=== PATIENT | male | born 1945 | race Caucasian/White ===

== ENCOUNTER 2021-07-07 08:34 | Outpatient (CLI) | payer MEDICARE, SELFPAY ==
--- NOTE | ~2021-07-07 | MR_ITS ---
EXAMINATION: MR abdomen wo/w con DATE: 07/07/2021 09:39 INDICATION: Cyst of the pancreas TECHNIQUE: Magnetic resonance imaging (MRI) of the abdomen was performed without and with 13 mL Multi lorenza intravenous contrast. Sequences included coronal T2-weighted SS-FSE, coronal and axial FS 2D-F IESTA, axial STIR FSE, axial T2-weighted SS-FSE, axial T2-weighted FS SS-FSE, axial diffusion-weighte d SE, axial dual-echo T1-weighted FSPGR, and axial and coronal T1-weighted LAVA. Postcontrast axial T 1-weighted LAVA images were obtained in a time course. Postcontrast coronal T1-weighted LAVA images w ere obtained. COMPARISON: 01/10/2019 FINDINGS: Heart size is normal. No pericardial or pleural effusion. Bilateral gynecomastia. 1.8 cm T2 hyperinte nse nonenhancing cyst at the posterior dome of the liver with a couple additional subcentimeter cysts in segment 6 of the liver. 1.4 cm and 0.8 cm T2 hyperintense nonenhancing cystic lesions at the head of the pancreas which are slightly increased in size measuring 10 mm and 6 mm at the time of the wali or study. Pancreas is otherwise normal. Unchanged 4 mm nonenhancing T2 hyperintense cyst in the splee n along with a few small foci of absent signal in the spleen corresponding to calcified granulomata o n CT dated 06/03/2017. Gallbladder, bilateral adrenal glands and kidneys are normal. There are scatter ed diverticula along the visualized colon. No adjacent inflammatory stranding or edema to suggest div erticulitis. No pathologically enlarged abdominal lymphadenopathy. Severe disc height loss with fibro fatty degenerative endplate changes at L1-L2. Otherwise mild lumbar and lower thoracic spondylosis. IMPRESSION: 1. Minimal increase in a couple cystic lesions at the head of the pancreas with no evident solid soft tissue component. The differential diagnosis includes pseudocyst, intraductal papillary mucinous jose luis plasm (IPMN), mucinous cystic neoplasm (MCN), and the less common serous cystadenoma and neuroendocri ne tumor. Interval stability favors a benign etiology but would recommend additional 2 year follow-up pre and postcontrast MRI. Reviewed, dictated and finalized at location B. IMPRESSION: 1. Minimal increase in a couple cystic lesions at the head of the pancreas with no evident solid soft tissue component. The differential diagnosis includes ps eudocyst, intraductal papillary mucinous neoplasm (IPMN), mucinous cystic neopl asm (MCN), and the less common serous cystadenoma and neuroendocrine tumor. Int erval stability favors a benign etiology but would recommend additional 2 year follow-up pre and postcontrast MRI.
[2021-07-07 09:00] LABS: Estimated Glomerular Filt Rate > 60
== END 2021-07-07 08:35 | disposition home or self-care (01) ==
PROVIDERS: PCP Family Medicine Adolescent Medicine; Visit Provider Family Medicine Adolescent Medicine
DX: K86.2 Cyst of pancreas (principal)
CPT/HCPCS: 74183; A9577

== ENCOUNTER 2022-08-27 03:37 | Day surgery (SDC) | payer MEDICARE, SELFPAY ==
[2022-08-16 14:28] VITALS: BMI 20.5
[2022-08-27 10:44] VITALS: BP 128/64; PULSE 56; RESP 16; TEMP 36.2; O2SAT 100
--- NOTE | 2022-08-27 10:51 | WPDANESEPPF ---
Anes - Initial Pre Proc Eval Procedure: Operation Date: 08/27/22 11:00 Proposed Procedures p Screening Colonoscopy - Choco Krishnan MD Date/Time: 08/27/22 10:51 Surgeon: Choco Krishnan MD Pre Op Diagnosis: neoplasm screening Patient Data Age: 77 Gender: M Height: 1.78 m Weight: 63 kg Last Vital Signs Temp 97.1 F L 08/27/22 10:44 Pulse 56 L 08/27/22 10:44 Resp 16 08/27/22 10:44 BP 128/64 08/27/22 10:44 Pulse Ox 100 08/27/22 10:44 O2 Del Method Room Air 08/27/22 10:44 Allergies Allergy/AdvReac Type Severity Reaction Status Date / Time NKA Allergy Unknown Uknown Uncoded 08/27/22 10:43 Home Medications Medication Instructions Recorded Confirmed Type lisinopril 5 mg tablet 5 mg PO DAILY #90 tabs 12/15/21 08/16/22 Rx atorvastatin 20 mg tablet See Rx Instructions .Route 06/11/22 08/16/22 Rx .COMPLEX #90 tabs Patient hx anesthesia problems: none Family hx anesthesia problems: none Results Review: All pre-operative results and documents have been reviewed as part of the pre-operative evaluation. [facility] Past Medical History Medical History (Updated 06/22/22 @ 11:16 by Siddhartha Sanderson MD) Iron deficiency anemia, unspecified Other iron deficiency anemias Surgical History Surgical History (Updated 06/24/21 @ 06:48 by Siddhartha Sanderson MD) History of cataract surgery 2020 Family History Family History (Updated 06/25/21 @ 12:53 by Peg Miranda MA) Father Alzheimer's dementia Colon polyp Sibling Heart disease Abdominal aortic aneurysm Mother Cerebrovascular accident Social History Social History (Updated 06/25/21 @ 12:54 by Peg Miranda MA) Smoking status: Never smoker Second hand tobacco smoke exposure: No Alcohol intake: current Drinks per week: 7 Alcohol use details: Glass of wine qd Substance use: never Substance use type: does not use Living arrangements: with family Occupation/Education: retired Gender identity (if verbalized by the patient): Male Sexual Orientation (if Verbalized by the Patient): Straight or Heterosexual Spiritual care concerns: No Agree to blood products: Yes Anes - Eval Final PreProcedure Day of Procedure 08/27/22 10:51 Patient weight: normal Heart: regular rate and rhythm Lungs: clear to auscultation Airway: Mallampati scale class II Neurological: alert and oriented Last oral intake: >/= 8 hours ASA classification: II Emergent: no Anesthetic plan: proceed Anesthesia type and monitoring: general GIVS and standard monitoring Results Review: All pre-operative results and documents have been reviewed as part of the pre-operative evaluation. Informed Consent: The patient's anesthetic plan and its attendant risks and benefits were discussed with the patient/family/POA. Questions were solicited and answers provided to the satisfaction of the patient/family/POA.
[2022-08-27] MEDS: LACTATED RINGERS 1,000 ML 150 ML IV CONT (10:52)
--- NOTE | 2022-08-27 10:55 | PM.HPGS ---
History of Present Illness History of Present Illness Consent: Risks, benefits, and alternatives have been discussed and questions answered. Patient agrees to proceed with procedure. Chief complaint: neoplasm screening Narrative: Asael Montiel is a 77 year old male Presents for screening colonoscopy. Patient's current weight appetite and bowel movements are normal. Patient denies abdominal pain. He has had no bleeding. Family history noncontributory. Previous colonoscopy was more than 20 years ago. Review of Systems Review of Systems: Review of systems noncontributory. [facility] Past Medical History Medical History (Updated 08/27/22 @ 10:57 by Choco Krishnan MD) Iron deficiency anemia, unspecified Other iron deficiency anemias Surgical History Surgical History (Updated 06/24/21 @ 06:48 by Siddhartha Sanderson MD) History of cataract surgery 2020 Family History Family History (Updated 06/25/21 @ 12:53 by Peg Miranda MA) Father Alzheimer's dementia Colon polyp Sibling Heart disease Abdominal aortic aneurysm Mother Cerebrovascular accident Social History Social History (Updated 06/25/21 @ 12:54 by Peg Miranda MA) Smoking status: Never smoker Second hand tobacco smoke exposure: No Alcohol intake: current Drinks per week: 7 Alcohol use details: Glass of wine qd Substance use: never Substance use type: does not use Living arrangements: with family Occupation/Education: retired Gender identity (if verbalized by the patient): Male Sexual Orientation (if Verbalized by the Patient): Straight or Heterosexual Spiritual care concerns: No Agree to blood products: Yes Meds Home Medications and Allergies Home Medications Medication Instructions Recorded Confirmed Type lisinopril 5 mg tablet 5 mg PO DAILY #90 tabs 12/15/21 08/16/22 Rx atorvastatin 20 mg tablet See Rx Instructions .Route 06/11/22 08/16/22 Rx .COMPLEX #90 tabs Allergies Allergy/AdvReac Type Severity Reaction Status Date / Time NKA Allergy Unknown Uknown Uncoded 08/27/22 10:43 Vital Signs Vital Signs - 24 hr 08/27/22 10:44 Temperature 97.1 F L Pulse Rate 56 L Respiratory Rate 16 Blood Pressure 128/64 Pulse Oximetry 100 Oxygen Delivery Room Air Exam Narrative: Physical exam reveals patient to be alert. Vital signs stable. HEENT exam is unremarkable. Patient is anicteric. Lungs are clear to auscultation and percussion. Heart is without murmur or extra sounds. Abdomen bowel sounds are present soft nontender with no organomegaly. Digital external rectal exam is normal. Assessment and Plan Assessment and plan (1) Encounter for screening colonoscopy: Code(s): Z12.11 - Encounter for screening for malignant neoplasm of colon Status: Acute Assessment and Plan: Patient presents today for screening colonoscopy. Further recommendations will be given after endoscopy.
[2022-08-27] MEDS: SIMETHICONE ORAL SUSPENSION 20 MG/0.3 ML 30 ML BOTTLE 0.6 ML IRRIGATION (11:30)
[2022-08-27 11:39] VITALS: BP 97/54; PULSE 53; RESP 16; O2SAT 100
[2022-08-27 11:49] VITALS: BP 127/62; PULSE 44; RESP 16; O2SAT 97
[2022-08-27 11:58] VITALS: BP 120/62; PULSE 45; RESP 16; O2SAT 99
== END 2022-08-27 12:15 | disposition home or self-care (01) ==
PROVIDERS: PCP Family Medicine Adolescent Medicine; Visit Provider Internal Medicine Gastroenterology
PROC: 0DJD8ZZ Inspection of Lower Intestinal Tract, Via Natural or Artificial Opening Endoscopic (ICD-10-PCS; CPT 45378; principal; 2022-08-27 11:00)
DX: Z12.11 Encounter for screening for malignant neoplasm of colon (principal); K57.30 Diverticulosis of large intestine without perforation or abscess without bleeding; K64.8 Other hemorrhoids
CPT/HCPCS: G0121; J2704; J7120

== ENCOUNTER 2023-06-29 10:52 | Outpatient (CLI) | payer MEDICARE, SELFPAY ==
[2023-06-29 12:45] LABS: Hematocrit 43.3 % (42.0-52.0); Hemoglobin 13.9 g/dL (14.0-18.0); Mean Corpuscular HGB Conc 32.1 g/dl (32-36); Mean Corpuscular Hemoglobin 30.3 pg (26-34); Mean Corpuscular Volume 94.3 fl (80-100); Mean Platelet Volume 10.4 fl (7.4-10.4); Platelet Count Result 229 k/mm3 (150-375); Red Blood Count 4.59 M/mm3 (4.6-6.20); Red Cell Distribution Width 12.4 % (11.5-14.5); White Blood Count 6.4 K/mm3 (4.5-10.0)
[2023-06-29 13:03] LABS: Alanine Aminotransferase 29 U/L (6-50); Albumin Level 4.2 g/dL (3.5-5.1); Alkaline Phosphatase 74 U/L (38-126); Anion Gap 3 mmol/L (4-12); Aspartate Amino Transferase 26 U/L (17-59); Bilirubin,Total 0.6 mg/dL (0.2-1.3); Blood Urea Nitrogen 18 mg/dL (9-20); Calcium 9.1 mg/dL (8.4-10.2); Carbon Dioxide 32 mmol/L (22-30); Chloride 104 mmol/L (98-107); Cholesterol 169 mg/dL (0-200); Estimated Glomerular Filt Rate > 60; Glucose 90 mg/dL (65-110); HDL Direct 59 mg/dL; Potassium 4.4 mmol/L (3.4-5.0); Sodium 139 mmol/L (137-145); Triglycerides 107 mg/dL (<150)
[2023-06-29 13:14] LABS: LDL Cholesterol Direct 89 mg/dL
[2023-06-29 16:02] LABS: Prostate Specific Antigen 3.3 ng/mL (< OR = 4.0)
== END 2023-06-29 10:53 | disposition home or self-care (01) ==
PROVIDERS: PCP Family Medicine Adolescent Medicine; Visit Provider Family Medicine Adolescent Medicine
DX: K86.2 Cyst of pancreas (principal); D50.9 Iron deficiency anemia, unspecified; E78.00 Pure hypercholesterolemia, unspecified; I10 Essential (primary) hypertension; Z12.5 Encounter for screening for malignant neoplasm of prostate
CPT/HCPCS: 36415; 80053; 80061; 84153; 85027; G0103

== ENCOUNTER 2023-07-20 10:35 | Outpatient (CLI) | payer MEDICARE, SELFPAY ==
--- NOTE | ~2023-07-20 | MR_ITS ---
EXAMINATION: MR MRCP wo/w con/w 3D wo ind DATE: 07/20/2023 11:47 INDICATION: Pancreatic cyst. TECHNIQUE: Magnetic resonance imaging (MRI) of the abdomen was performed without and with 13 mL Multi Nella intravenous contrast. Sequences included coronal T2-weighted FS FSE, coronal T2-weighted FSE, a xial T1-weighted LAVA, coronal FS FIESTA, axial dual-echo T1-weighted SPGR, coronal lava-FLEX, sagitt al T2-weighted FSE, axial T2-weighted FSE, and axial DWI. Thick-slab T2-weighted FSE images were obta ined for magnetic resonance cholangiopancreatography (MRCP). Maximum intensity projection 3-D reconst ructions of the volumetric data were created by the technologist. Postcontrast sequences included cor onal LAVA-flex and time course of axial T1-weighted LAVA. COMPARISON: Abdomen MRI 07/07/2021 FINDINGS: ABDOMEN MRI: There is a 17 mm cyst in the liver. The gallbladder, spleen, are normal. There is a 2.7 cm cystic lesion with a single septum in the head of the pancreas that communicates with the main eldridge creatic duct, increased from 1.9 cm on 07/07/21. The pancreatic duct is normal in caliber. The adrenal glands and kidneys are normal. There are no dilated loops of bowel. ABDOMEN MRCP: The common duct is normal in caliber. No choledocholithiasis. IMPRESSION: 1. 2.7 cm cystic lesion of the pancreas with low-risk features with increase in size from 1.9 cm on . The differential diagnosis includes pseudocyst, intraductal papillary mucinous neoplasm (IP MN), mucinous cystic neoplasm (MCN), serous cystadenoma, and neuroendocrine tumor. Consider endoscopi c ultrasound with fine-needle aspiration or 6-month abdomen MRI without and with contrast. Reviewed, dictated and finalized at location A. IMPRESSION: 1. 2.7 cm cystic lesion of the pancreas with low-risk features with increase in size from 1.9 cm on 07/07/2021. The differential diagnosis includes pseudocyst, intraductal papillary mucinous neoplasm (IPMN), mucinous cystic neoplasm (MCN) , serous cystadenoma, and neuroendocrine tumor. Consider endoscopic ultrasound with fine-needle aspiration or 6-month abdomen MRI without and with contrast.
== END 2023-07-20 10:36 | disposition home or self-care (01) ==
PROVIDERS: PCP Family Medicine Adolescent Medicine; Visit Provider Family Medicine Adolescent Medicine
DX: K86.2 Cyst of pancreas (principal)
CPT/HCPCS: 74183; 76376; A9577

== ENCOUNTER 2024-01-27 07:16 | Outpatient (CLI) | payer MEDICARE, SELFPAY ==
--- NOTE | ~2024-01-27 | XR_ITS ---
EXAMINATION: XR chest 2V 01/27/2024 07:42 INDICATION: Abnormal weight loss PROCEDURE: 2 view chest COMPARISON: No prior studies for comparison. FINDINGS: The lungs are clear. The cardiomediastinal silhouette is within normal limits. There are no pleural effusions. There is no pneumothorax suspected. IMPRESSION: 1: NO ACUTE CARDIOPULMONARY DISEASE. Reviewed, dictated and finalized at location B. IMEDIA DEVELOPER
[2024-01-27 08:14] LABS: Free T4 Free Thyroxine 1.18 ng/dL (0.78-2.19)
[2024-01-27 08:21] LABS: Cortisol Baseline 9.62 ug/dL
== END 2024-01-27 07:17 | disposition home or self-care (01) ==
PROVIDERS: PCP Family Medicine Adolescent Medicine; Visit Provider Family Medicine Adolescent Medicine
DX: R63.4 Abnormal weight loss (principal)
CPT/HCPCS: 36415; 71046; 82533; 84439; 84443

== ENCOUNTER 2024-04-19 09:40 | Outpatient (CLI) | payer MEDICARE, SELFPAY ==
--- NOTE | ~2024-04-19 | MR_ITS ---
EXAMINATION: MR MRCP wo/w con/w 3D wo ind DATE: 04/19/2024 10:56 INDICATION: With pancreatic cyst TECHNIQUE: Magnetic resonance imaging (MRI) of the abdomen was performed without and with 12 mL Multi lorenza intravenous contrast. Sequences included coronal T2-weighted SS-FSE, coronal T2-weighted FS SS- FSE, coronal T2-weighted FS FIESTA, axial T2-weighted FS FIESTA, axial T2-weighted FIESTA, sagittal T 2-weighted SS-FSE, axial T1-weighted dual-echo FSPGR, axial T2-weighted SS-FSE, axial T1-weighted LAV A, axial T2-weighted STIR FSE. Thick-slab T2-weighted FRFSE-XL images were obtained for magnetic reso nance cholangiopancreatography (MRCP). Rotating maximum intensity projection 3-D reconstructions of [facility] volumetric data were created by the technologist. Postcontrast sequences included a time course of axial T1-weighted LAVA. COMPARISON: 07/20/2023 FINDINGS: ABDOMEN MRI: Heart size normal. No pericardial or pleural effusion. 1.6 similar T2 hyperintense nonenhancing cyst at the posterior dome of the liver. There are couple additional subcentimeter cysts more caudally in the right hepatic lobe. Gallbladder, spleen, bilateral adrenal glands and right kidney are normal. 1 cm left renal cyst. 3.0 x 2.5 cm cystic lesion at the pancreas with a couple thin linear internal sep tations the 3 separate cystic regions. No evident solid enhancing soft tissue component. O n the sagittal images there does appear to be a direct communication with the main pancreatic duct. P ancreas is otherwise normal. There are scattered colonic diverticula without adjacent from trace stra nding to suggest diverticulitis. No bowel obstruction. Visualized portion bladder is normal. Enlarged partially visualized prostate. Severe lumbar spondylosis with associated fibrofatty and fibrovascula r degenerative endplate changes. ABDOMEN MRCP: No intrahepatic biliary ductal dilation. The common bile duct is also normal in caliber measuring up to 3 to 4 mm. No evident mucosal irregularities or choledocholithiasis. The main pancreatic duct is n ormal in caliber. IMPRESSION: 1. Mild interval increase in size of a now 3.0 x 2.5 cm multiloculated cystic lesion at the head of t he pancreas which demonstrates thin linear internal septations but no solid enhancing soft tissue com ponent. 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 Differential would also include pseudocyst, mucinous cystic neop lasm (MCN), and the less common serous cystadenoma and neuroendocrine tumor. Correlate for history of pancreatitis. Given patient age and increase in size, could consider a single additional 1 year foll ow-up. Reviewed, dictated and finalized at location L. [place] PHARMACY TECHNICIAN IMPRESSION: 1. Mild interval increase in size of a now 3.0 x 2.5 cm multiloculated cystic l esion at the head of the pancreas which demonstrates thin linear internal septa tions but no solid enhancing soft tissue component. There appears be direct com munication with the main pancreatic duct suggestive of intraductal papillary mu cinous neoplasm (IPMN). Differential would also include pseudocyst, mucinous cy stic neoplasm (MCN), and the less common serous cystadenoma and neuroendocrine tumor. Correlate for history of pancreatitis. Given patient age and increase in size, could consider a single additional 1 year follow-up.
--- OUTSIDE RECORDS SUMMARY | 2024-04-19 10:45 | XMS_ITS | Referral Summary ---
Author Organization [facility] al Address [address] [place] [address] Care Team Providers Care Registered Representative Name Role Phone Siddhartha Sanderson MD Primary Care Prov ider Encounters Date Type Department Care Team Description 04/13/2024 Telephone [facility] Gastroenterology [address] [place] [address] Medical Office Building [address], [address] [place] [address] Cynthia Grimes Scheduling Appointments (04/13 MRI scheduled at [facility] for 04/19) 04/04/2024 Telephone [facility] Gastroenterology [address] [place] [address] Medical Office Building [address], [address] [place] [address] Cynthia Grimes Scheduling Appointments (04/04 spk with pt request imaging be completed at [facility]. Faxed order to [phone] Prio Auth not required. Xfered pt for scheduling. ) 04/04/2024 Orders Only [facility] Gastroenterology [address] [place] [address] Medical Office [address] [place] [address] Justo Keene MD IPMN (intraductal papillary mucinous neoplasm) (Primary Dx); Cyst of pancreas 03/30/2024 Telephone [facility] Gastroenterology [address] [place] [address] Medical Office [address] [place] [address] Cornelio, Cynthia Scheduling Appointments (03/30 [facility] to schedule 8mos FU MRI) from Last 3 Months Allergies No known active allergies Medications atorvastatin (LIPITOR) 20 mg tablet Take 1 tablet (20 mg total) by mouth daily 06/07/2023 Active lisinopriL (PRINIVIL,ZESTRI L) 5 mg tablet 5 MG ORALLY DAILY 06/07/2023 Active Social History Tobacco Use Types Packs/Day Years Used Date Smoking Tobacco: Never Tobacco Cessation:Counseling Given: Not Answered Personal Safety Answer Date Recorded Have you ever been in or are you currently in a harmful physical or emotional relationship or is someone making you feel afraid or unsafe? 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 Gender Identity Not on file Sexual Orientation Not on file Last Filed Vital Signs Vital Sign Reading Time Taken Comments Blood Pressure 122/72 08/09/2023 1:52 PM CDT Pulse 59 08/09/2023 1:52 PM CDT Temperature 36.2 C (97.2 F) 08/09/2023 1:02 PM CDT Respiratory Rate 17 08/09/2023 1:52 PM CDT Oxygen Saturation 98% 08/09/2023 1:52 PM CDT Inhaled Oxygen Concentration - - Weight 65.8 kg (145 lb) 08/09/2023 11:28 AM CDT Height 177.8 cm (5' 10 ) 08/09/2023 11:28 AM CDT Body Mass Index 20.81 08/09/2023 11:28 AM CDT Plan of Treatment Not on file Insurance MEDICARE [facility] MEDICARE [facility] Advance Directives For more information, please contact: [phone] * Full Code (Latest Code Status on File) Date Activated Date Inactivated Comments 08/09/2023 11:21 AM 08/09/2023 6:08 PM Care Teams Registered Representative Relationship Specialty Start Date End Date Siddhartha Sanderson MD [address] [place] [address] [facility] - General 04/28/11
--- OUTSIDE RECORDS SUMMARY | 2024-04-19 10:45 | XMS_ITS | Clinical Summary ---
Author Organization [facility] Address [address] [place] [address] Care Team Providers Care Repair Supervisor Name Role Phone Siddhartha Sanderson MD Primary Care Prov ider Allergies No known active allergies Medications atorvastatin (LIPITOR) 20 mg tablet Take 1 tablet (20 mg total) by mouth daily 06/07/2023 Active lisinopriL (PRINIVIL,ZESTRI L) 5 mg tablet 5 MG ORALLY DAILY 06/07/2023 Active Encounters Date Type Department Care Team Description 04/13/2024 Telephone [facility] Gastroenterology [address] [place] [address] Medical Office Building [address], [address] [place] [address] Cynthia Grimes Scheduling Appointments (04/13 [facility] 04[facility]) 04/04/2024 Telephone [facility] Gastroenterology [address] [place] [address] Medical Office Building [address], [address] [place] [address] Cynthia Grimes Scheduling Appointments (04/04 spk with pt [facility]. Faxed order to [phone] Prio Auth not required. Xfered pt for scheduling. ) 04/04/2024 Orders Only [facility] Gastroenterology [address] [place] [address] Medical Office Building [address], [address] [place] [address] Justo Keene MD IPMN (intraductal papillary mucinous neoplasm) (Primary Dx); Cyst of pancreas 03/30/2024 Telephone [facility] G[facility]enterology [address] [facility] Medical Office [address] [place] [address] Cynthia Grimes Scheduling Appointments (03/30 [facility]OM to schedule 8mos FU MRI) from Last 3 Months Surgical History Surgery Date Site/Laterality Comments COLONOSCOPY Medical History Medical History Date Comments Hypertension Social History Tobacco Use Types Packs/Day Years [...] on file 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 Gender Identity Not on file Sexual Orientation Not on file Obstetrics History Last Filed Vital Signs Vital Sign Reading [...] 08/09/2023 11:28 AM CDT Plan of Treatment Health Maintenance Due Date Last Done Comments Depression Screening 1945 Hepatitis C Screening 1945 DTaP/Tdap/Td Vaccine (1 - Tdap) 02/11/1956 Hepatitis B Screening 1963 Pneumococcal vaccine 65+ (1 of 1 - PCV) 1995 Well Visit 65+ 2010 Zoster Vaccine (3 of 3) 08/22/2023 06/27/2023, 12/08 Covid-19 Vaccine (2023-2 5 season) 2023 01/21/2023, 10/30/2021, 06/26/2021, Additional history exists Influenza Vaccine (#1) 2023 12/03/2022 Fall Risk Assessment 08/08/2024 08/09/2023 Insurance MEDICARE [facility] MEDICARE [facility] Advance Directives For more information, please contact: [phone] * Full Code (Latest Code Status on File) Date Activated Date Inactivated Comments 08/09/2023 11:21 AM 08/09/2023 6:08 PM Care Teams Repair Supervisor Relationship Specialty Start Date End Date Siddhartha Sanderson MD [address] [place], [place] [id number] PCP - General 04/28/11
== END 2024-04-19 09:41 | disposition home or self-care (01) ==
PROVIDERS: PCP Family Medicine Adolescent Medicine
DX: K86.2 Cyst of pancreas (principal); D49.0 Neoplasm of unspecified behavior of digestive system
CPT/HCPCS: 74183; 76376; A9577

== ENCOUNTER 2025-01-16 10:48 | Outpatient (CLI) | payer MEDICARE, SELFPAY ==
[2025-01-16 11:06] LABS: Hematocrit 42.7 % (42.0-52.0); Hemoglobin 13.7 g/dL (14.0-18.0); Immature Granulocyte Percent A 0.3 % (0-0.5); Lymphocytes Absolute Auto 0.74 K/mm3 (0.9-3.2); Mean Corpuscular HGB Conc 32.1 g/dl (32-36); Mean Corpuscular Hemoglobin 30.0 pg (26-34); Mean Corpuscular Volume 93.6 fl (80-100); Nucleated Red Blood Cells Absolute Auto 0.000 K/mm3 (0.0-0.012); Nucleated Red Blood Cells Perc 0.0 % (0.0-0.2); Platelet Count Result 274 k/mm3 (150-375); Red Blood Count 4.56 M/mm3 (4.6-6.20); White Blood Count 6.3 K/mm3 (4.5-10.0)
[2025-01-16 11:31] LABS: Iron 91 ug/dL (49-181)
[2025-01-16 11:32] LABS: Alanine Aminotransferase 31 U/L (6-50); Albumin Level 4.4 g/dL (3.5-5.1); Alkaline Phosphatase 72 U/L (38-126); Aspartate Amino Transferase 32 U/L (17-59); Bilirubin,Total 0.6 mg/dL (0.2-1.3); Cholesterol 196 mg/dL (0-200); HDL Direct 66 mg/dL; Total Protein 7.3 g/dL (6.3-8.2); Triglycerides 125 mg/dL (<150)
[2025-01-16 11:41] LABS: Percent Iron Saturation 30 % (20-50)
[2025-01-16 12:12] LABS: Ferritin 41.90 ng/mL (11.1-264)
--- OUTSIDE RECORDS SUMMARY | 2025-01-16 12:25 | XMS_ITS | Encounter Summary ---
Author Organization [facility] Address [address] [place] [address] Phone Care Team Providers Care Napkin Band Wrapper Name Role Phone Siddhartha Sanderson MD Primary Care Prov ider Encounter Details Date Type Department Care Team (Late st Contact Info) Description 11/22/2024 Results Follow-Up [facility] Gastroenterology [address] [facility] Medical Office [address], [address] [place] [address] Justo Keene MD [address] [place] [address] MRI Abdomen MRCP W WO Contrast Incl 3D Social History Tobacco Use Types Packs/Day Years Used Date Smoking Tobacco: Never Smokeless Tobacco: Never Personal Safety Answer Date Recorded Have you ever been in or are you currently in a harmful physical or emotional relationship or is someone making you feel afraid or unsafe? 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 Will repeat MRI MRCP w and w/o contrast in one year documented in this encounter Plan of Treatment Not on file documented as of this encounter Visit Diagnoses Not on filedocumented in this encounter Care Teams Napkin Band Wrapper Relationship Specialty Start Date End Date Siddhartha Sanderson MD PCP - General 04/28/11 documented as of this encounter
--- OUTSIDE RECORDS SUMMARY | 2025-01-16 12:25 | XMS_ITS | Encounter Summary ---
Author Organization [facility] Address [address] [facility] [address] [place] [address] Phone Care Team Providers Care Reaming Machine Operator Name Role Phone Siddhartha Sanderson MD Primary Care Prov ider Reason for Visit * Reason Onset Date Comments Medical Records Request 01/16/2025 Rcv'd fa xed request for medical records from [facility]; faxed most recent H&P, Labs, MRI, amd EUS Encounter Details Date Type Department Care Team (Late st Contact Info) Description 01/16/2025 Telephone [facility] Medicine Gastroenterology [address] [place] [address] Medical Office Building [address], [address] [place] [address] Cynthia Grimes Medical Records Request (Rcv'd faxed request for medical records from [facility]; faxed most recent H&P, Labs, MRI, amd EUS ) Social History Tobacco Use Types Packs/Day Years [...] on file 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 Gender Identity Not on file Sexual Orientation Not on file documented as of this encounter Miscellaneous Notes * Telephone Encounter - Cynthia Grimes - 01/16/2025 10:21 AM CST Rcv'd faxed request for medical records from [facility]; faxed most recent H&P, Labs, MRI, amd EUS SPRINKLER SERVICE TECHNICIAN documented in this encounter Plan of Treatment Not on file documented as of this encounter Visit Diagnoses Not on filedocumented in this encounter Care Teams Reaming Machine Operator Relationship Specialty Start Date End Date Siddhartha Sanderson MD PCP - General 04/28/11 documented as of this encounter
--- OUTSIDE RECORDS SUMMARY | 2025-01-16 12:25 | XMS_ITS | Clinical Summary ---
Author Organization [facility] Address [address] [place] [address] Care Team Providers Care Speech Communication Professor Name Role Phone Siddhartha Sanderson MD Primary Care Prov ider Allergies No known active allergies Medications atorvastatin (LIPITOR) 20 mg tablet Take 1 tablet (20 mg total) by mouth daily 06/07/2023 Active lisinopriL (PRINIVIL,ZESTRI L) 5 mg tablet 5 MG ORALLY DAILY 06/07/2023 Active cetirizine (ZyrTEC) 10 mg tablet Take 1 tablet (10 mg total) by mouth daily Active simethicone 125 mg tablet Take 125 mg by mouth daily as needed Active Active Problems Problem Noted Date Diagnosed Date Cyst of pancreas 04/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 Encounters Date Type Department Care Team Description 01/16/2025 Telephone [facility] Medicine Gastroenterology [address] [place] [address] Office [address] [place] [phone] Cynthia Grimes Medical Records Request (Rcv'd faxed request for medical records from [facility]; faxed most recent H&P, Labs, MRI, amd EUS ) 11/22/2024 Results Follow-Up [facility] Medicine Gastroenterology [address] [place] [address] Office [address], [address] [place] [phone] Justo Keene MD MRI Abdomen MRCP W WO Contrast Incl 3D 11/20/2024 3:37 PM CDT - 11/20/2024 11:59 PM CDT Hospital Encounter [facility] [address] [place] [id number] Cyst of pancreas Discharge Disposition: Discharge to home or self care 10/25/2024 Telephone [facility] Gastroenterology [address] [place] [address] Medical Office Building [address], [address] [place] [address] Cynthia Grimes Scheduling Appointments (10/25 spk w/ pt MRI scheduled for 11/20 ) 10/25/2024 Orders Only [facility] Gastroenterology [address] [place] [address] Medical Office [address] [place] [address] Justo Keene MD Cyst of pancreas (Primary Dx) 10/18/2024 Telephone [facility] Gastroenterology [address] [place] [address] Medical Office [address] [place] [address] Cynthia Grimes Scheduling Appointments (10/20 LMOM to scheduled 6mos MRI/MRCP for pancreatic cyst ) from Last 3 Months Surgical History Surgery Date Site/Laterality Comments COLONOSCOPY Medical History Medical History Date Comments Hypertension Social History Tobacco Use Types Packs/Day Years Used Date Smoking Tobacco: Never Smokeless Tobacco: Never Tobacco Cessation:Counseling Given: Not Answered Personal Safety Answer Date Recorded Have you ever been in or are you currently in a harmful physical or emotional relationship or is someone making you feel afraid or unsafe? 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 Gender Identity Not on file Sexual Orientation Not on file Last Filed Vital Signs Vital Sign Reading Time Taken Comments Blood Pressure 132/76 06/21/2024 12:46 PM CDT Pulse 57 06/21/2024 12:46 PM CDT Temperature 36 C (96.8 F) 06/21/2024 11:46 AM CDT Respiratory Rate 21 06/21/2024 12:46 PM CDT Oxygen Saturation 100% 06/21/2024 12:46 PM CDT Inhaled Oxygen Concentration - - Weight 65.8 kg (145 lb) 06/21/2024 10:28 AM CDT Height 177.8 cm (5' 10) 06/21/2024 10:28 AM CDT Body Mass Index 20.81 06/21/2024 10:28 AM CDT Plan of Treatment Health Maintenance Due Date Last Done Comments Depression Screening 1945 Hepatitis C Screening 1945 Hepatitis B Screening 1963 Pneumococcal vaccine 65+ (1 of 1 - PCV) 1995 Well Visit 65+ 2010 Covid-19 Vaccine (7 - 2024-2 6 season) 2024 01/21/2023, 01/21/2023, 10/30/2021, Additional history exists Influenza Vaccine (#1) 2024 12/03/2022 Fall Risk Assessment 06/21/2025 06/21/2024 DTaP/Tdap/Td Vaccine (3 - Td or Tdap) 10/16/2030 10/16/2020, 04/22/2006 Zoster Vaccine Completed 11/10/2023, 06/14, 12/09/2015 Procedures Procedure Name Priority Date/Time Associated Diagnosis Comments MRI ABDOMEN MRCP W WO CONTRAST Schedule Routine, Read Routine (OP Routine) 11/20/2024 4:43 PM CDT Cyst of pancreas from Last 3 Months Results * MRI Abdomen MRCP W WO Contrast Incl 3D (11/20/2024 4:43 PM CDT) Anatomical Region Laterality Modality Body N/A Magnetic Resonan ce 11/21/2024 9:15 AM CDT Impressions 11/21/2024 2:35 PM CDT Interval decrease in size of cystic lesion in the pancreatic head without suspicious or worrisome features with morphologic features side branch intraductal papillary mucinous neoplasm. Dictated by: Jose Greene MD The radiology attending physician has personally reviewed this study, and had reviewed and/or edited this written report and agrees with it. Electronically signed by: Devon Milton M.D. Narrative 11/21/2024 2:35 PM CDT EXAMINATION: 1. MAGNETIC RESONANCE IMAGING OF THE ABDOMEN WITH AND WITHOUT CONTRAST 2. THREE DIMENSIONAL RECONSTRUCTION OF THE BILIARY TREE AND PANCREATIC DUCT HISTORY: Pancreatic cyst TECHNIQUE: Magnetic resonance imaging of the abdomen was performed prior to and following the administration of intravenous contrast. The raw data was processed on the scanner by the technologist for 3 dimensional reconstructions of the intrahepatic ducts, extrahepatics ducts, and pancreatic duct. Protocol: Liver MRCP Contrast: Dotarem (gadoterate) 15 mL COMPARISON: MRI abdomen 04/19/2024 FINDINGS: Liver: No steatosis or iron deposition - Bile ducts: Nondilated - Focal liver lesions: Scattered hepatic cysts are noted. - Vasculature: Patent hepatic and portal veins. Gallbladder: Normal Pancreas: There is a 1.8 x 1.5 cm multilobulated cystic lesion in the head of the pancreas, significantly decreased in size from previous examination (series 9 image 32). Pancreatic duct is nondilated. No suspicious enhancement. No diffusion restriction Spleen: Normal. Splenic cysts are stable Adrenals: Normal Kidneys: Normal Other Findings: Lung bases are clear. Osseous structures are normal. There is no abdominal or pelvic lymphadenopathy. There is colonic diverticulosis without diverticulitis. Bowel loops are normal in caliber. Procedure Note Devon Milton MD - 11/21/2024 EXAMINATION: 1. MAGNETIC RESONANCE IMAGING OF THE ABDOMEN WITH AND WITHOUT CONTRAST 2. THREE DIMENSIONAL RECONSTRUCTION OF THE BILIARY TREE AND PANCREATIC DUCT HISTORY: Pancreatic cyst TECHNIQUE: Magnetic resonance imaging of the abdomen was performed prior to and following the administration of intravenous contrast. The raw data was processed on the scanner by the technologist for 3 dimensional reconstructions of the intrahepatic ducts, extrahepatics ducts, and pancreatic duct. Protocol: Liver MRCP Contrast: Dotarem (gadoterate) 15 mL COMPARISON: MRI abdomen 04/19/2024 FINDINGS: Liver: No steatosis or iron deposition - Bile ducts: Nondilated - Focal liver lesions: Scattered hepatic cysts are noted. - Vasculature: Patent hepatic and portal veins. Gallbladder: Normal Pancreas: There is a 1.8 x 1.5 cm multilobulated cystic lesion in the head of the pancreas, significantly decreased in size from previous examination (series 9 image 32). Pancreatic duct is nondilated. No suspicious enhancement. No diffusion restriction Spleen: Normal. Splenic cysts are stable Adrenals: Normal Kidneys: Normal Other Findings: Lung bases are clear. Osseous structures are normal. There is no abdominal or pelvic lymphadenopathy. There is colonic diverticulosis without diverticulitis. Bowel loops are normal in caliber. IMPRESSION: Interval decrease in size of cystic lesion in the pancreatic head without suspicious or worrisome features with morphologic features side branch intraductal papillary mucinous neoplasm. Dictated by: Jose Greene MD The radiology attending physician has personally reviewed this study, and had reviewed and/or edited this written report and agrees with it. Electronically signed by: Devon Milton M.D. Justo Keene MD IMG MRI PROCEDURES Fin al Result from Last 3 Months Insurance MEDICARE [facility] Address: [address] [address] [place] [address] [facility] MEDICARE [employer] Advance Directives For more information, please contact: [phone] * Full Code (Latest Code Status on File) Date Activated Date Inactivated Comments 06/21/2024 10:41 AM 06/21/2024 9:05 PM * Full Code Date Activated Date Inactivated Comments 08/09/2023 11:21 AM 08/09/2023 6:08 PM Care Teams Speech Communication Professor Relationship Specialty Start Date End Date Siddhartha Sanderson MD PCP - General 04/28/11
== END 2025-01-16 10:49 | disposition home or self-care (01) ==
PROVIDERS: PCP Family Medicine; Visit Provider Family Medicine
DX: E78.00 Pure hypercholesterolemia, unspecified (principal); Z13.220 Encounter for screening for lipoid disorders; D50.9 Iron deficiency anemia, unspecified
CPT/HCPCS: 36415; 80061; 80076; 82728; 83540; 83550; 85025